=== PATIENT | male | born 1980 | race Caucasian/White ===

== ENCOUNTER 2021-04-28 12:58 | Inpatient (IN) | payer OTHER ==
[~2021-04-28] VITALS: Ht 182.9 cm; Wt 59.0 kg
[2021-05-04] MEDS ORDERED: ACID CONTROLLER20 MG PO (19:26)
[2021-05-04] MEDS ORDERED: CIPRO500 MG PO (19:26)
[2021-05-04] MEDS ORDERED: INTEGRA PLUS C1 EACH PO (19:31)
== END 2021-05-04 20:29 | disposition home or self-care (01) | DRG 673 ==
LOC: ER 12:58 → MEDI 04-29 13:12
PROVIDERS: ADMIT Internal Medicine Hematology & Oncology; ATTEND Internal Medicine Hematology & Oncology
PROC: 0QB33ZX Excision of Left Pelvic Bone, Percutaneous Approach, Diagnostic (ICD-10-PCS; principal; 2021-04-29)
PROC: 0Q933ZZ Drainage of Left Pelvic Bone, Percutaneous Approach (ICD-10-PCS; 2021-04-29)
PROC: 30233N1 Transfusion of Nonautologous Red Blood Cells into Peripheral Vein, Percutaneous Approach (ICD-10-PCS; 2021-05-01)
DX: N13.1 Hydronephrosis with ureteral stricture, not elsewhere classified (principal); K65.1 Peritoneal abscess; C22.8 Malignant neoplasm of liver, primary, unspecified as to type; L02.214 Cutaneous abscess of groin; R19.09 Other intra-abdominal and pelvic swelling, mass and lump; N28.1 Cyst of kidney, acquired; K76.89 Other specified diseases of liver; D63.0 Anemia in neoplastic disease; Z20.822 Contact with and (suspected) exposure to COVID-19; B95.4 Other streptococcus as the cause of diseases classified elsewhere; E86.0 Dehydration; E87.8 Other disorders of electrolyte and fluid balance, not elsewhere classified

== ENCOUNTER → 2021-11-03 | Emergency (ER) | payer OTHER ==
[~2021-11-03] VITALS: Ht 182.9 cm; Wt 59.0 kg
[~2021-11-03] MED LIST: ACID CONTROLLER20 MG PO; CIPRO500 MG PO; INTEGRA PLUS C1 EACH PO
== END | disposition home or self-care (01) ==
LOC: ER 17:18
DX: R10.84 Generalized abdominal pain (principal)

== ENCOUNTER 2022-03-18 09:58 | Emergency (ER) | payer OTHER ==
[~2022-03-18] VITALS: Ht 167.6 cm; Wt 59.0 kg
== END 2022-03-18 15:50 | disposition home or self-care (01) ==
LOC: ER 09:58
DX: K31.84 Gastroparesis (principal); Z88.0 Allergy status to penicillin

== ENCOUNTER → 2022-04-27 | Emergency (ER) | payer OTHER ==
[~2022-04-27] VITALS: Ht 175.3 cm; Wt 49.9 kg
[~2022-04-27] MED LIST changes: +REGLAN5 MG/5 ML PO; +ZOFRAN8 MG PO
== END | disposition left against medical advice (07) ==
LOC: ER 09:58
DX: R10.84 Generalized abdominal pain (principal); K56.7 Ileus, unspecified; D64.9 Anemia, unspecified; Z87.19 Personal history of other diseases of the digestive system; Z88.0 Allergy status to penicillin